=== PATIENT | male | born 1975 | race Caucasian/White ===

== ENCOUNTER 2020-02-13 09:20 | Emergency (ER) | payer MEDICAID ==
[~2020-02-13] VITALS: Ht 165.1 cm; Wt 81.6 kg
[~2020-02-13 09:20] MED LIST: LOTC TP; METF500T PO; NOVN SUBQ
[2020-02-13 09:25] VITALS: BP 124/86
--- NOTE | 2020-02-13 09:30 | NUR ---
44 y/o MALE PRESENTED TO ED C/O RUQ ABDOMINAL PAIN & COUGH X 3 DAYS. PT STATES HE WORKS AT A [employer] AND THE FIRST DAY BACK TO WORK HE STARTED GETTING A RUNNING NOSE. THE SECOND DAY OF WORK STARTED GETTING A SORE THROAT AND COUGH. PT STATES HE ALSO HAS RUQ ABDOMINAL PAIN , RATES 8/10 , SHARP AND HURTS WHEN HE COUGHS OR MOVES. PT DENIES FEVER , NAUSEA . PT STATES VOMIT X 3 DAYS . PT STATES ITS MORE ACID THAN THROWING UP FOOD. PT RESTING IN BED AT LOWEST POSITION, SIDE RAILS X1. PMH: HIGH CHOLESTEROL, DM RX: INSULIN, SIMVOSTATIN , ASPIRIN
--- NOTE | 2020-02-13 09:30 | NUR ---
Patient ambulated to bed 6. RN evaluating patient at bedside.
--- NOTE | 2020-02-13 09:35 | NUR ---
PT AMBULATED TO BATHROOM W/ STEADY GAIT.
--- NOTE | 2020-02-13 10:27 | NUR ---
Dr. Morales is evaluating the patient at bedside.
[2020-02-13 10:40] VITALS: BP 124/86
--- NOTE | 2020-02-13 10:40 | NUR ---
Patient discharged with v/s stable. Written and verbal after care instructions given and explained. Patient alert, oriented and verbalized understanding of instructions. Ambulatory with steady gait. All questions addressed prior to discharge. ID band removed. Patient advised to follow up with PMD. Rx of PREDNISONE,MOTRIN given. Patient educated on indication of medication including possible reaction and side effects. Opportunity to ask questions provided and answered.
== END 2020-02-13 10:40 | disposition home or self-care (01) ==
LOC: MED 09:20
DX: R05 Cough (principal); E78.00 Pure hypercholesterolemia, unspecified; E11.9 Type 2 diabetes mellitus without complications; Z79.899 Other long term (current) drug therapy; Z79.4 Long term (current) use of insulin
CPT/HCPCS: 81002; 99283

== ENCOUNTER 2022-06-01 20:13 | Emergency (ER) | payer MEDICAID ==
[~2022-06-01 20:13] MED LIST changes: +METF-346 PO; -METF500T PO
--- NOTE | 2022-06-01 22:15 | NUR ---
CALLED TO TRIAGE, NO ANSWER
--- NOTE | 2022-06-01 22:30 | NUR ---
CALLEDT OTRIAGE, NO ANSWER
--- NOTE | 2022-06-01 23:00 | NUR ---
CALLED TO TRIAGE, NO ANSWER
== END 2022-06-01 22:15 | disposition left against medical advice (07) ==
LOC: MED 20:13
DX: M54.9 Dorsalgia, unspecified (principal); Z53.21 Procedure and treatment not carried out due to patient leaving prior to being seen by health care provider

== ENCOUNTER 2024-02-15 08:07 | Emergency (ER) | payer MEDICAID, OTHER ==
[~2024-02-15] VITALS: Ht 165.1 cm; Wt 82.6 kg
[2024-02-15 08:11] VITALS: BP 122/86; PULSE 84; RESP 16; TEMP 97.4; O2SAT 99
[2024-02-15 09:09] LABS: BASOPHILS % (AUTO) 0.5 % (0.0-2.0); EOSINOPHILS # (AUTO) 0.1 K/uL (0-0.4); EOSINOPHILS % (AUTO) 2.6 % (0.0-4.0); HEMATOCRIT 44.2 % (36-52); HEMOGLOBIN 15.3 g/dL (12.0-18.0); LYMPHOCYTES # (AUTO) 1.5 K/uL (2.0-11.5); LYMPHOCYTES % (AUTO) 27.8 % (20.5-51.1); MEAN CORPUSCULAR HEMOGLOBIN 31 pg (27-31); MEAN CORPUSCULAR HGB CONC 35 g/dL (33-37); MEAN CORPUSCULAR VOLUME 90.8 fL (80-94); MONOCYTES # (AUTO) 0.5 K/uL (0.8-1.0); MONOCYTES % (AUTO) 8.4 % (1.7-9.3); NEUTROPHILS # (AUTO) 3.3 K/uL (1.8-7.7); NEUTROPHILS % (AUTO) 60.7 % (42.2-75.2); PLATELET COUNT (AUTO) 178 K/uL (140-450); RED BLOOD CELL COUNT(AUTO) 4.87 MIL/uL (4.20-6.10); RED CELL DISTRIBUTION WIDTH 13.7 % (11.6-13.7); WHITE BLOOD COUNT (AUTO) 5.4 K/uL (4.8-10.8)
[2024-02-15] MEDS: ALUMINUM HYD/MAG/SIMETHICONE 30 ML UDC PO ONE (09:11)
[2024-02-15] MEDS: FAMOTIDINE 20 MG TAB PO ONE (09:12)
[2024-02-15] MEDS: METOCLOPRAMIDE 10 MG TAB PO ONE (09:13)
[2024-02-15 09:23] LABS: ANION GAP 9.9 (8-16); CALCIUM 8.6 mg/dL (8.5-10.1); CARBON DIOXIDE 27.2 mmol/L (21-32); POTASSIUM 4.1 mmol/L (3.5-5.1)
[2024-02-15 09:32] LABS: ALANINE AMINOTRANSFERASE 42 U/L (12-78); ALBUMIN 3.6 g/dL (3.4-5.0); ALKALINE PHOSPHATASE 82 U/L (50-136); ASPARTATE AMINOTRANSFERASE 20 U/L (15-37); BILIRUBIN,DIRECT 0.1 mg/dL (0.0-0.3); TOTAL BILIRUBIN 0.4 mg/dL (0.0-1.0); TOTAL PROTEIN, SERUM 6.6 g/dL (6.4-8.2)
[2024-02-15] MEDS ORDERED: SUCR-3 PO (10:02)
[2024-02-15] MEDS ORDERED: OMEP40EC23 PO (10:02)
[2024-02-15 10:10] VITALS: BP 119/76; PULSE 88; RESP 16; TEMP 98; O2SAT 99
== END 2024-02-15 10:10 | disposition home or self-care (01) ==
LOC: MED 08:07
DX: R10.13 Epigastric pain (principal); E11.9 Type 2 diabetes mellitus without complications; Z79.4 Long term (current) use of insulin; Z79.899 Other long term (current) drug therapy
CPT/HCPCS: 36415; 71045; 80048; 80076; 83690; 84484; 85025; 93005; 99285; J8597